=== PATIENT | female | born 1965 | race Caucasian/White ===

== ENCOUNTER 2017-06-23 07:56 | Outpatient (CLI) | payer OTHER, BC ==
[~2017-06-23 07:56] MED LIST: GADOBUTROL 7.5 MMOL/7.5 ML SYRINGE ONE
[2017-06-23] MEDS ORDERED: GADOBUTROL 7.5 MMOL/7.5 ML SYRINGE IVP ONE (08:48)
--- NOTE | 2017-06-23 11:18 | MRI Report ---
EXAM: MRI BRAIN WITHOUT AND WITH CONTRAST EXAM DATE: 06/23/2017 09:08 AM. CLINICAL HISTORY: History of right orbital mass and blurred vision. COMPARISON: None. TECHNIQUE: Multiplanar, multisequence T1-weighted and fluid-sensitive MR sequences of the brain were performed. Sequences optimized for orbit evaluation. Other: None. IV Contrast: 7.5ML GADAVIST. FINDINGS: Brain Volume: Normal for age. Parenchyma: No acute hemorrhage, mass, or infarct. No white matter lesions identified. No abnormal en hancement. Ventricles/Cisterns: No hydrocephalus. No abnormal extra-axial fluid collection or hemorrhage. Orbits: Marked abnormality of the right optic nerve. Beginning at or just behind the right globe ther e is abnormal thickening and enhancement of the right intraorbital optic nerve. This abnormality incl uding enhancement extends posteriorly to just anterior to the level of the optic chiasm. Enlargement of the right optic nerve creates effacement of the normal CSF signal in the optic nerve sheath. The a bnormal right optic nerve shows only minimal T2 hyperintensity, approximately isointense to extraocul ar muscle. Abnormal enhancement appears to be of the optic nerve, but enhancement of optic nerve plata th pathology may be difficult to differentiate from a primary optic nerve lesion. Unremarkable appearance of the left optic nerve. The soft tissues of the orbits are otherwise symmetr ic and unremarkable bilaterally. Symmetric unremarkable appearance of the extraocular muscles and lac rimal glands. No focal ocular lesion or proptosis. Sella Turcica: Partially empty sella. IAC: Symmetric and unremarkable. Vasculature: Normal signal flow void is seen in the major arterial structures at the skull base. The dural sinuses are patent and enhance normally. Sinuses: No acute appearing sinus or mastoid disease. There may be a trace of nonspecific ethmoid and maxillary mucosal thickening. Bones: No focal pathologic appearing marrow signal changes. Other: None. IMPRESSION: 1. 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 This segment of the nerve is mildly enlarged an d shows moderately prominent contrast enhancement extending posteriorly to just anterior to the level of the optic chiasm. This lesion is not strongly T2 hyperintense. Differential includes pseudotumor, optic neuritis, lymphoproliferative lesions, optic nerve glioma, optic nerve sheath meningioma, sarc oidosis, and metastasis. 2. Partially empty sella. 3. Intracranial MRI findings otherwise appear unremarkable. [facility] Referring Provider Line: [phone] SITE ID: [id number]
== END 2017-06-23 07:57 | disposition home or self-care (01) ==
LOC: DI 07:56
PROVIDERS: ATTEND Ophthalmology
DX: D31.61 Benign neoplasm of unspecified site of right orbit (principal); R93.8 Abnormal findings on diagnostic imaging of other specified body structures
CPT/HCPCS: 70543; A9585

== ENCOUNTER 2017-08-11 08:51 | Outpatient (CLI) | payer OTHER, BC ==
[2017-08-11 09:36] LABS: BASOPHILS # (AUTO) 0.1 10^3/uL (0.0-0.1); BASOPHILS % (AUTO) 0.8 %; EOSINOPHILS # (AUTO) 0.4 10^3/uL (0.0-0.7); EOSINOPHILS % (AUTO) 5.3 %; LYMPHOCYTES % (AUTO) 23.1 %; MEAN CORPUSCULAR HEMOGLOBIN 31.3 pg (27.0-31.0); MEAN CORPUSCULAR HGB CONC 34.5 g/dL (32.0-36.0); MEAN CORPUSCULAR VOLUME 90.7 fL (81.0-99.0); MEAN PLATELET VOLUME 8.7 fL (7.9-10.8); MONOCYTES # (AUTO) 0.4 10^3/uL (0.0-1.0); MONOCYTES % (AUTO) 4.6 %; NEUTROPHILS # (AUTO) 5.6 10^3/uL (1.5-6.6); NEUTROPHILS % (AUTO) 66.2 %; PLT - PLATELET COUNT 255 10^3/uL (130-450); RED BLOOD COUNT 4.47 10^6/uL (4.20-5.40); RED CELL DISTRIBUTION WIDTH 13.1 % (12.0-15.0); WHITE BLOOD COUNT 8.5 x10^3/uL (4.8-10.8)
[2017-08-11 09:56] LABS: ALBUMIN/GLOBULIN RATIO 1.1 (1.0-2.2); ALKALINE PHOSPHATASE 79 IU/L (42-121); ALT ALANINE AMINOTRANSFERASE 24 IU/L (10-60); AST ASPARTATE AMINOTRANSFERASE 19 IU/L (10-42); BILIRUBIN,TOTAL 0.4 mg/dL (0.2-1.0); BUN - BLOOD UREA NITROGEN 13 mg/dL (6-20); CALCIUM 9.1 mg/dL (8.5-10.3); CARBON DIOXIDE - CO2 26 mmol/L (21-32); CHLORIDE 104 mmol/L (101-111); CHOL/HDL RATIO 5.6 (<4.4); CHOLESTEROL 158 mg/dL; CREATININE 0.6 mg/dL (0.4-1.0); GFR - MDRD 105 (>89); GLUCOSE 117 mg/dL (70-100); HDL CHOLESTEROL 28 mg/dL; LDL CHOLESTEROL,CALCULATED 65 mg/dL; LDL/HDL RATIO 2.3 (<4.4); SODIUM 138 mmol/L (135-145); TOTAL PROTEIN 7.7 g/dL (6.7-8.2); VLDL CHOLESTEROL 65 mg/dL
[2017-08-13 11:43] LABS: HEPATITIS C ANTIBODY NON-REACTIVE (NON-REACTIVE)
== END 2017-08-11 08:52 | disposition home or self-care (01) ==
LOC: LAB 08:51
PROVIDERS: ATTEND Family Medicine
DX: Z00.00 Encounter for general adult medical examination without abnormal findings (principal); Z82.49 Family history of ischemic heart disease and other diseases of the circulatory system; Z83.3 Family history of diabetes mellitus; Z11.59 Encounter for screening for other viral diseases
CPT/HCPCS: 36415; 80053; 80061; 83721; 84443; 85025; 86803

== ENCOUNTER 2017-08-19 08:30 | Outpatient (CLI) | payer OTHER, BC ==
--- NOTE | 2017-08-20 11:00 | CT Report ---
Procedure Date: 08/19/2017 Accession Number: [id number] / [id number] Procedure: CT - Orbits W/O CPT Code: FULL RESULT: EXAM: CT ORBITS WITHOUT CONTRAST EXAM DATE: 08/19/2017 08:46 AM. CLINICAL HISTORY: Tumor of optic nerve. COMPARISONS: MRI orbits 06/23/2017. TECHNIQUE: Thin-section axial images were acquired of the orbits without contrast. Post-processing: Coronal and sagittal reformats. Other: None. In accordance with CT protocol optimization, one or more of the following dose reduction techniques were utilized for this exam: automated exposure control, adjustment of mA and/or KV based on patient size, or use of iterative reconstructive technique. FINDINGS: As seen on the comparison MRI there is mild enlargement of the right optic nerve throughout its intraocular segment, in the orbital apex, throughout its intracanalicular segment with extension into the most anterior aspect of its prechiasmatic segment. A similar finding is seen on the comparison MRI. The right optic nerve is slightly hyperattenuating relative to the left optic nerve. The left optic nerve is normal in size. No inflammatory change is seen adjacent to either optic nerve. Extraocular muscles are symmetric in size. The lacrimal glands are symmetric in size. Superior ophthalmic vein is not enlarged on the right or on the left. The right and left globes have a normal CT appearance. There is no orbital proptosis. No mass is present in either visualized parotid gland or in the visualized nasopharynx. Mastoid air cells and middle ear cavity are well aerated. No suspicious lytic or blastic region is seen in the wall of either orbit. Trace mucosal thickening is seen in ethmoid air cells and each maxillary sinus. IMPRESSION: 1. Again seen is an enlarged right optic nerve with differential diagnostic considerations discussed on the comparison report. Accounting for differences in modality, this is not felt to be changed [facility]
== END 2017-08-19 08:31 | disposition home or self-care (01) ==
LOC: DI 08:30
PROVIDERS: ATTEND Psychiatry & Neurology Neurology
DX: D49.7 Neoplasm of unspecified behavior of endocrine glands and other parts of nervous system (principal)
CPT/HCPCS: 70480

== ENCOUNTER 2017-08-31 08:00 | Outpatient (CLI) | payer OTHER, BC ==
[2017-08-31] MEDS ORDERED: IOPAMIDOL-300 100 ML VIAL ONE (08:18)
--- NOTE | 2017-08-31 08:54 | CT Report ---
Procedure Date: 08/31/2017 Accession Number: [id number] / [id number] Procedure: CT - Chest W/ CPT Code: FULL RESULT: EXAM: Chest W/ DATE: 08/31/2017 8:29 AM CLINICAL HISTORY: OPTIC NEUROPATHY, RIGHT COMPARISON: None. TECHNIQUE: Routine helical CT imaging was performed through the chest. IV contrast: None. Reconstructions: Coronal and sagittal. In accordance with CT protocol optimization, one or more of the following dose reduction techniques were utilized for this exam: automated exposure control, adjustment of mA and/or KV based on patient size, or use of iterative reconstructive technique. FINDINGS: Lungs/Pleura: No nodules, bronchial thickening, consolidation, or edema. Pulmonary vasculature is normal. No pericardial or pleural effusion. No pneumothorax. Mediastinum: Normal. No adenopathy or masses. The heart and great vessels are normal. Bones: Unremarkable. Visualized Abdomen: Sliding hiatal hernia, small. Other: None. IMPRESSION: No pulmonary masses or suspicious nodules. [facility]
[2017-08-31] MEDS ORDERED: IOPAMIDOL-300 100 ML VIAL IVP ONE (11:59)
== END 2017-08-31 08:01 | disposition home or self-care (01) ==
LOC: DI 08:00
PROVIDERS: ATTEND Psychiatry & Neurology Neurology
DX: H46.9 Unspecified optic neuritis (principal)
CPT/HCPCS: 71260; Q9967

== ENCOUNTER 2018-02-16 08:50 | Outpatient (CLI) | payer BC ==
[2018-02-16 09:24] LABS: BASOPHILS % (AUTO) 0.6 %; EOSINOPHILS # (AUTO) 0.3 10^3/uL (0.0-0.7); EOSINOPHILS % (AUTO) 3.8 %; HGB - HEMOGLOBIN 13.7 g/dL (12.0-16.0); LYMPHOCYTES # (AUTO) 1.6 10^3/uL (1.5-3.5); LYMPHOCYTES % (AUTO) 19.4 %; MEAN CORPUSCULAR HGB CONC 34.7 g/dL (32.0-36.0); MEAN CORPUSCULAR VOLUME 89.5 fL (81.0-99.0); MEAN PLATELET VOLUME 9.1 fL (7.9-10.8); MONOCYTES # (AUTO) 0.4 10^3/uL (0.0-1.0); MONOCYTES % (AUTO) 4.2 %; NEUTROPHILS # (AUTO) 6.1 10^3/uL (1.5-6.6); PLT - PLATELET COUNT 260 10^3/uL (130-450); RED BLOOD COUNT 4.41 10^6/uL (4.20-5.40); RED CELL DISTRIBUTION WIDTH 13.6 % (12.0-15.0); WHITE BLOOD COUNT 8.5 x10^3/uL (4.8-10.8)
[2018-02-16 09:33] LABS: ALBUMIN 4.2 g/dL (3.2-5.5); ALBUMIN/GLOBULIN RATIO 1.4 (1.0-2.2); BILIRUBIN,TOTAL 0.5 mg/dL (0.2-1.0); CALCIUM 9.1 mg/dL (8.5-10.3); CREATININE 0.5 mg/dL (0.4-1.0); TOTAL PROTEIN 7.2 g/dL (6.7-8.2)
== END 2018-02-16 08:51 | disposition home or self-care (01) ==
LOC: LAB 08:50
PROVIDERS: ATTEND Psychiatry & Neurology Neurology
DX: Z79.899 Other long term (current) drug therapy (principal)
CPT/HCPCS: 36415; 80053; 85025

== ENCOUNTER 2018-03-18 08:47 | Outpatient (CLI) | payer BC ==
[2018-03-18 08:58] LABS: BASOPHILS # (AUTO) 0.1 10^3/uL (0.0-0.1); BASOPHILS % (AUTO) 0.7 %; EOSINOPHILS # (AUTO) 0.2 10^3/uL (0.0-0.7); EOSINOPHILS % (AUTO) 2.9 %; HGB - HEMOGLOBIN 13.9 g/dL (12.0-16.0); LYMPHOCYTES # (AUTO) 1.7 10^3/uL (1.5-3.5); LYMPHOCYTES % (AUTO) 19.9 %; MEAN CORPUSCULAR HEMOGLOBIN 30.7 pg (27.0-31.0); MEAN CORPUSCULAR HGB CONC 34.3 g/dL (32.0-36.0); MEAN CORPUSCULAR VOLUME 89.7 fL (81.0-99.0); MEAN PLATELET VOLUME 8.7 fL (7.9-10.8); MONOCYTES # (AUTO) 0.4 10^3/uL (0.0-1.0); MONOCYTES % (AUTO) 4.1 %; NEUTROPHILS # (AUTO) 6.1 10^3/uL (1.5-6.6); NEUTROPHILS % (AUTO) 72.4 %; PLT - PLATELET COUNT 269 10^3/uL (130-450); RED BLOOD COUNT 4.52 10^6/uL (4.20-5.40); RED CELL DISTRIBUTION WIDTH 13.6 % (12.0-15.0); WHITE BLOOD COUNT 8.5 x10^3/uL (4.8-10.8)
[2018-03-18 09:10] LABS: ALBUMIN 4.3 g/dL (3.2-5.5); ALBUMIN/GLOBULIN RATIO 1.3 (1.0-2.2); BILIRUBIN,TOTAL 0.5 mg/dL (0.2-1.0); CALCIUM 9.5 mg/dL (8.5-10.3); CREATININE 0.6 mg/dL (0.4-1.0); TOTAL PROTEIN 7.6 g/dL (6.7-8.2)
== END 2018-03-18 08:48 | disposition home or self-care (01) ==
LOC: LAB 08:47
PROVIDERS: ATTEND Psychiatry & Neurology Neurology
DX: Z79.899 Other long term (current) drug therapy (principal)
CPT/HCPCS: 36415; 80053; 85025

== ENCOUNTER 2018-04-16 09:08 | Outpatient (CLI) | payer BC ==
[2018-04-16 09:54] LABS: BASOPHILS # (AUTO) 0.1 10^3/uL (0.0-0.1); BASOPHILS % (AUTO) 0.7 %; EOSINOPHILS # (AUTO) 0.2 10^3/uL (0.0-0.7); EOSINOPHILS % (AUTO) 2.8 %; HGB - HEMOGLOBIN 13.6 g/dL (12.0-16.0); LYMPHOCYTES # (AUTO) 1.8 10^3/uL (1.5-3.5); LYMPHOCYTES % (AUTO) 22.7 %; MEAN CORPUSCULAR HEMOGLOBIN 30.4 pg (27.0-31.0); MEAN CORPUSCULAR HGB CONC 33.8 g/dL (32.0-36.0); MEAN PLATELET VOLUME 8.9 fL (7.9-10.8); MONOCYTES # (AUTO) 0.3 10^3/uL (0.0-1.0); MONOCYTES % (AUTO) 4.4 %; NEUTROPHILS # (AUTO) 5.4 10^3/uL (1.5-6.6); NEUTROPHILS % (AUTO) 69.4 %; PLT - PLATELET COUNT 256 10^3/uL (130-450); RED BLOOD COUNT 4.46 10^6/uL (4.20-5.40); RED CELL DISTRIBUTION WIDTH 13.7 % (12.0-15.0); WHITE BLOOD COUNT 7.8 x10^3/uL (4.8-10.8)
[2018-04-16 10:11] LABS: ALBUMIN 4.5 g/dL (3.2-5.5); ALBUMIN/GLOBULIN RATIO 1.6 (1.0-2.2); BILIRUBIN,TOTAL 0.6 mg/dL (0.2-1.0); CALCIUM 9.1 mg/dL (8.5-10.3); CREATININE 0.4 mg/dL (0.4-1.0); TOTAL PROTEIN 7.4 g/dL (6.7-8.2)
== END 2018-04-16 09:09 | disposition home or self-care (01) ==
LOC: LAB 09:08
PROVIDERS: ATTEND Psychiatry & Neurology Neurology
DX: Z79.899 Other long term (current) drug therapy (principal)
CPT/HCPCS: 36415; 80053; 85025

== ENCOUNTER 2018-06-23 09:19 | Outpatient (CLI) | payer BC ==
[2018-06-23 09:36] LABS: BASOPHILS # (AUTO) 0.1 10^3/uL (0.0-0.1); BASOPHILS % (AUTO) 0.8 %; EOSINOPHILS # (AUTO) 0.3 10^3/uL (0.0-0.7); EOSINOPHILS % (AUTO) 3.8 %; HGB - HEMOGLOBIN 13.9 g/dL (12.0-16.0); LYMPHOCYTES # (AUTO) 1.6 10^3/uL (1.5-3.5); LYMPHOCYTES % (AUTO) 18.7 %; MEAN CORPUSCULAR HGB CONC 33.8 g/dL (32.0-36.0); MEAN CORPUSCULAR VOLUME 88.7 fL (81.0-99.0); MEAN PLATELET VOLUME 8.4 fL (7.9-10.8); MONOCYTES # (AUTO) 0.3 10^3/uL (0.0-1.0); MONOCYTES % (AUTO) 3.9 %; NEUTROPHILS # (AUTO) 6.3 10^3/uL (1.5-6.6); NEUTROPHILS % (AUTO) 72.8 %; PLT - PLATELET COUNT 268 10^3/uL (130-450); RED BLOOD COUNT 4.63 10^6/uL (4.20-5.40); RED CELL DISTRIBUTION WIDTH 13.3 % (12.0-15.0); WHITE BLOOD COUNT 8.6 x10^3/uL (4.8-10.8)
[2018-06-23 09:51] LABS: ALBUMIN/GLOBULIN RATIO 1.3 (1.0-2.2); BILIRUBIN,TOTAL 0.4 mg/dL (0.2-1.0); CREATININE 0.7 mg/dL (0.4-1.0); TOTAL PROTEIN 7.1 g/dL (6.7-8.2)
== END 2018-06-23 09:20 | disposition home or self-care (01) ==
LOC: LAB 09:19
PROVIDERS: ATTEND Psychiatry & Neurology Neurology
DX: Z79.899 Other long term (current) drug therapy (principal)
CPT/HCPCS: 36415; 80053; 85025

== ENCOUNTER 2018-07-22 08:00 | Outpatient (CLI) | payer BC ==
[2018-07-22 09:52] LABS: BASOPHILS # (AUTO) 0.1 10^3/uL (0.0-0.1); BASOPHILS % (AUTO) 0.9 %; EOSINOPHILS # (AUTO) 0.3 10^3/uL (0.0-0.7); EOSINOPHILS % (AUTO) 3.6 %; HGB - HEMOGLOBIN 13.7 g/dL (12.0-16.0); LYMPHOCYTES # (AUTO) 1.9 10^3/uL (1.5-3.5); LYMPHOCYTES % (AUTO) 21.2 %; MEAN CORPUSCULAR HEMOGLOBIN 30.2 pg (27.0-31.0); MEAN CORPUSCULAR HGB CONC 33.8 g/dL (32.0-36.0); MEAN CORPUSCULAR VOLUME 89.3 fL (81.0-99.0); MONOCYTES # (AUTO) 0.4 10^3/uL (0.0-1.0); MONOCYTES % (AUTO) 4.5 %; NEUTROPHILS # (AUTO) 6.2 10^3/uL (1.5-6.6); NEUTROPHILS % (AUTO) 69.8 %; PLT - PLATELET COUNT 270 10^3/uL (130-450); RED BLOOD COUNT 4.53 10^6/uL (4.20-5.40); RED CELL DISTRIBUTION WIDTH 13.1 % (12.0-15.0); WHITE BLOOD COUNT 8.9 x10^3/uL (4.8-10.8)
[2018-07-22 10:06] LABS: ALBUMIN 4.2 g/dL (3.2-5.5); ALBUMIN/GLOBULIN RATIO 1.3 (1.0-2.2); BILIRUBIN,TOTAL 0.4 mg/dL (0.2-1.0); CREATININE 0.5 mg/dL (0.4-1.0); TOTAL PROTEIN 7.5 g/dL (6.7-8.2)
== END 2018-07-22 23:59 | disposition home or self-care (01) ==
LOC: LAB 08:00
PROVIDERS: ATTEND Psychiatry & Neurology Neurology
DX: Z79.899 Other long term (current) drug therapy (principal)
CPT/HCPCS: 36415; 80053; 85025

== ENCOUNTER 2018-08-20 08:50 | Outpatient (CLI) | payer BC ==
[2018-08-20 09:16] LABS: BASOPHILS % (AUTO) 0.5 %; EOSINOPHILS # (AUTO) 0.3 10^3/uL (0.0-0.7); EOSINOPHILS % (AUTO) 3.5 %; HGB - HEMOGLOBIN 13.3 g/dL (12.0-16.0); LYMPHOCYTES # (AUTO) 1.6 10^3/uL (1.5-3.5); LYMPHOCYTES % (AUTO) 21.2 %; MEAN CORPUSCULAR HGB CONC 33.8 g/dL (32.0-36.0); MEAN CORPUSCULAR VOLUME 91.6 fL (81.0-99.0); MEAN PLATELET VOLUME 10.3 fL (7.9-10.8); MONOCYTES # (AUTO) 0.4 10^3/uL (0.0-1.0); MONOCYTES % (AUTO) 5.4 %; NEUTROPHILS # (AUTO) 5.1 10^3/uL (1.5-6.6); NEUTROPHILS % (AUTO) 68.7 %; PLT - PLATELET COUNT 259 10^3/uL (130-450); RED BLOOD COUNT 4.29 10^6/uL (4.20-5.40); RED CELL DISTRIBUTION WIDTH 12.9 % (12.0-15.0); WHITE BLOOD COUNT 7.4 x10^3/uL (4.8-10.8)
[2018-08-20 09:31] LABS: ALBUMIN 4.2 g/dL (3.2-5.5); ALBUMIN/GLOBULIN RATIO 1.2 (1.0-2.2); BILIRUBIN,TOTAL 0.4 mg/dL (0.2-1.0); CALCIUM 9.2 mg/dL (8.5-10.3); CREATININE 0.6 mg/dL (0.4-1.0); TOTAL PROTEIN 7.6 g/dL (6.7-8.2)
== END 2018-08-20 08:51 | disposition home or self-care (01) ==
LOC: LAB 08:50
PROVIDERS: ATTEND Psychiatry & Neurology Neurology
DX: Z79.899 Other long term (current) drug therapy (principal)
CPT/HCPCS: 36415; 80053; 85025

== ENCOUNTER 2019-12-20 09:46 | Outpatient (CLI) | payer BC ==
[2019-12-20 09:54] LABS: BASOPHILS % (AUTO) 0.5 %; EOSINOPHILS # (AUTO) 0.3 10^3/uL (0.0-0.7); HGB - HEMOGLOBIN 13.9 g/dL (12.0-16.0); LYMPHOCYTES # (AUTO) 1.9 10^3/uL (1.5-3.5); LYMPHOCYTES % (AUTO) 21.1 %; MEAN CORPUSCULAR HGB CONC 33.2 g/dL (32.0-36.0); MEAN CORPUSCULAR VOLUME 93.3 fL (81.0-99.0); MEAN PLATELET VOLUME 10.4 fL (7.9-10.8); MONOCYTES # (AUTO) 0.4 10^3/uL (0.0-1.0); MONOCYTES % (AUTO) 4.2 %; NEUTROPHILS # (AUTO) 6.3 10^3/uL (1.5-6.6); NEUTROPHILS % (AUTO) 70.9 %; PLT - PLATELET COUNT 273 10^3/uL (130-450); RED BLOOD COUNT 4.49 10^6/uL (4.20-5.40); RED CELL DISTRIBUTION WIDTH 12.6 % (12.0-15.0); WHITE BLOOD COUNT 8.9 x10^3/uL (4.8-10.8)
[2019-12-20 10:08] LABS: ALBUMIN 4.3 g/dL (3.2-5.5); ALBUMIN/GLOBULIN RATIO 1.4 (1.0-2.2); BILIRUBIN,TOTAL 0.6 mg/dL (0.2-1.0); CALCIUM 8.9 mg/dL (8.5-10.3); CREATININE 0.6 mg/dL (0.4-1.0); TOTAL PROTEIN 7.4 g/dL (6.7-8.2)
== END 2019-12-20 09:47 | disposition home or self-care (01) ==
LOC: LAB 09:46
PROVIDERS: ATTEND Psychiatry & Neurology Neurology
DX: Z79.899 Other long term (current) drug therapy (principal)
CPT/HCPCS: 36415; 80053; 85025

== ENCOUNTER 2020-07-24 09:21 | Outpatient (CLI) | payer BC ==
[2020-07-24 10:06] LABS: HCT - HEMATOCRIT 39.8 % (37.0-47.0); HGB - HEMOGLOBIN 13.6 g/dL (12.0-16.0); MEAN CORPUSCULAR HEMOGLOBIN 31.6 pg (27.0-31.0); MEAN CORPUSCULAR HGB CONC 34.2 g/dL (32.0-36.0); MEAN CORPUSCULAR VOLUME 92.6 fL (81.0-99.0); MEAN PLATELET VOLUME 10.4 fL (7.9-10.8); RED BLOOD COUNT 4.3 10^6/uL (4.20-5.40); RED CELL DISTRIBUTION WIDTH 12.7 % (12.0-15.0)
== END 2020-07-24 09:22 | disposition home or self-care (01) ==
LOC: LAB 09:21
PROVIDERS: ATTEND Psychiatry & Neurology Neurology
DX: Z79.899 Other long term (current) drug therapy (principal)
CPT/HCPCS: 36415; 80053; 85027

== ENCOUNTER 2020-07-26 09:51 | Outpatient (CLI) | payer BC ==
[2020-07-26 10:17] LABS: ALBUMIN 4.5 g/dL (3.2-5.5); ALBUMIN/GLOBULIN RATIO 1.5 (1.0-2.2); BILIRUBIN,TOTAL 0.6 mg/dL (0.2-1.0); CALCIUM 9.1 mg/dL (8.5-10.3); CREATININE 0.6 mg/dL (0.4-1.0); POTASSIUM 4.1 mmol/L (3.5-5.0); TOTAL PROTEIN 7.6 g/dL (6.7-8.2)
== END 2020-07-26 09:52 | disposition home or self-care (01) ==
LOC: LAB 09:51
PROVIDERS: ATTEND Psychiatry & Neurology Neurology
DX: Z79.899 Other long term (current) drug therapy (principal)
CPT/HCPCS: 36415; 80053

== ENCOUNTER 2020-10-31 08:20 | Outpatient (CLI) | payer BC ==
--- NOTE | 2020-11-01 08:53 | Mammography Report ---
BILATERAL DIGITAL SCREENING MAMMOGRAM 3D/2D: 10/31/2020 CLINICAL: Routine screening. Comparison is made to exams dated: 02/14/2011 mammogram, 12/03/2007 mammogram, and 07/29/2004 mammogram - [facility]. The tissue of both breasts is heterogeneously dense. This may lower the sensitiv ity of mammography. There is a new oval low density asymmetry with a circumscribed and microlobulated margin and fine ministerio cifications in the right breast at 12 o'clock anterior depth. No other significant masses, calcifications, or other findings are seen in either breast. IMPRESSION: INCOMPLETE: NEEDS ADDITIONAL IMAGING EVALUATION The new oval low density asymmetry in the right breast is indeterminate. Additional views with possi ble ultrasound are recommended. This exam was interpreted at Station ID: [id number]. NOTE: For mammograms, a report in lay terms will be sent to the patient. Approximately 15% of breast malignancies will not be visualized mammographically. In the management of a palpable breast mass, a negative mammogram must not discourage biopsy of a clinically suspicious lesion. Electronically Signed By: Cindy lockwood/:10/31/2020 11:45:38 ACR BI-RADS Category 0: Incomplete 3340F PARENCHYMAL PATTERN: (D) - The breast(s) demonstrate(s) heterogeneously dense fibroglandular kimberly zarco. BI-RADS CATEGORY: (0) - 0 Mammo and [place] [id number] Immediate follow-up LATERALITY: (B)
== END 2020-10-31 08:21 | disposition home or self-care (01) ==
LOC: DI 08:20
DX: Z12.31 Encounter for screening mammogram for malignant neoplasm of breast (principal); R92.8 Other abnormal and inconclusive findings on diagnostic imaging of breast

== ENCOUNTER 2020-11-30 12:18 | Outpatient (CLI) | payer BC ==
--- NOTE | 2020-12-03 10:16 | Mammography Report ---
UNILATERAL RIGHT DIGITAL DIAGNOSTIC MAMMOGRAM 3D/2D: 11/30/2020 CLINICAL: Patient returns today to evaluate a focal asymmetry in the right breast. Comparison is made to exams dated: 10/31/2020 mammogram - [facility], 12/03/2007 ma mmogram, and 02/14/2011 mammogram - [facility]. The tissue of right breast is heterogeneously den se. This may lower the sensitivity of mammography. There is a new oval low density asymmetry with a circumscribed and microlobulated margin and fine ministerio cifications in the right breast at 12 o'clock anterior depth. There also is a possible 0.5 cm oval focal asymmetry with a microlobulated margin in the right breast at 3 o'clock anterior depth. Finding is seen only on tomography. No other significant masses or calcifications are seen in the breast. IMPRESSION: INCOMPLETE: NEEDS ADDITIONAL IMAGING EVALUATION The new oval low density asymmetry in the right breast at 12 o'clock anterior depth is indeterminate. -A targeted ultrasound is recommended and will immediately follow. The possible 0.5 cm oval focal asymmetry in the right breast at 3 o'clock anterior depth is indetermi robert. -A targeted ultrasound is recommended and will immediately follow. This exam was interpreted at Station ID: [id number]. NOTE: For mammograms, a report in lay terms will be sent to the patient. Approximately 15% of breast malignancies will not be visualized mammographically. In the management of a palpable breast mass, a negative mammogram must not discourage biopsy of a clinically suspicious lesion. Electronically Signed By: Wilner Han M.D. slc/:11/30/2020 13:00:17 ACR BI-RADS Category 0: Incomplete 3340F PARENCHYMAL PATTERN: (D) - The breast(s) demonstrate(s) heterogeneously dense fibroglandular parenchy ma. BI-RADS CATEGORY: (0) - 0 Ultrasound [id number] Immediate follow-up LATERALITY: (B)
--- NOTE | 2020-12-03 10:16 | Ultrasound Report ---
LIMITED ULTRASOUND OF RIGHT BREAST AND AXILLA: 11/30/2020 CLINICAL: Patient returns today to evaluate a focal asymmetries in the right breast. Comparison is made to exams dated: 11/30/2020 mammogram, 10/31/2020 mammogram - [facility], and 02/14/2011 mammogram - [facility]. Color flow and real-time ultrasound of the right breast 2-3 o'clock, 12 o'clock, retroareolar, and ax illa regions were performed. Hare scale images of the real-time examination were reviewed. There is a 1.1 cm x 0.9 cm x 0.6 cm oval mass in the right breast at 12 o'clock anterior depth 1 cm f rom the nipple. This oval mass is hypoechoic with a well-defined boundary. This correlates with francis mography findings. Color flow imaging demonstrates that there is no vascularity present. Additionally, there is a 0.9 cm x 0.6 cm x 0.4 cm irregular mass in the right breast at 2 o'clock ant erior depth 3 cm from the nipple. This irregular mass is hypoechoic. Color flow imaging demonstrate s that there is vascularity present. There also is a 0.8 cm x 0.7 cm x 0.3 cm wider than tall oval mass with an indistinct margin in the r ight breast at 3 o'clock middle depth 3 cm from the nipple. This oval mass is hypoechoic. This michel elates with mammography findings. Color flow imaging demonstrates that there is no vascularity prese nt. This is located 0.9 cm from the mass at 2:00. No significant abnormalities were seen sonographically in the right axilla. IMPRESSION: SUSPICIOUS OF MALIGNANCY 1) The 1.1 cm x 0.9 cm x 0.6 cm oval mass in the right breast at 12 o'clock anterior depth resembles a fibroadenoma and is at a low suspicion for malignancy. -An ultrasound guided biopsy is recommended. 2) The 0.9 cm x 0.6 cm x 0.4 cm irregular mass in the right breast at 2 o'clock anterior depth is at a low suspicion for malignancy. -An ultrasound guided biopsy is recommended. 3) The 0.8 cm x 0.7 cm x 0.3 cm wider than tall oval mass in the right breast at 3 o'clock middle dep th resembles a fibroadenoma and is at a low suspicion for malignancy. Will biopsy the mass at 2:00 (w hich is slightly more suspicious) given the close proximity of these two masses. Exam findings were discussed with the patient by Dr. Velarde. This exam was interpreted at Station ID: [id number]. Electronically Signed By: Wilner Han M.D. slc/:11/30/2020 14:00:40 Ultrasound BI-RADS: 4a Low suspicion for malignancy BI-RADS CATEGORY: (4a) - Low Susp None [id number] Immediate follow-up LATERALITY: ()
== END 2020-11-30 12:19 | disposition home or self-care (01) ==
LOC: DI 12:18
PROVIDERS: ATTEND Obstetrics & Gynecology
DX: R92.8 Other abnormal and inconclusive findings on diagnostic imaging of breast (principal)

== ENCOUNTER 2020-12-06 08:41 | Outpatient (CLI) | payer BC ==
[~2020-12-06 08:41] MED LIST changes: +BUFFERED LIDOCAINE 10 ML SYRINGE ONE; -GADOBUTROL 7.5 MMOL/7.5 ML SYRINGE ONE
[2020-12-06] MEDS ORDERED: BUFFERED LIDOCAINE 10 ML SYRINGE IU ONE (11:12)
[2020-12-06] MEDS ORDERED: LIDOCAINE 1%-EPI 1:100000 20 ML MDV SUBQ ONE (11:30)
--- NOTE | 2020-12-07 09:12 | Mammography Report ---
UNILATERAL RIGHT DIGITAL DIAGNOSTIC MAMMOGRAM 3D/2D: 12/06/2020 CLINICAL: Post right breast ultrasound biopsy clip placement imaging. Comparison is made to exams dated: 11/30/2020 ultrasound, 11/30/2020 mammogram, 10/31/2020 mammogram - [facility], 02/14/2011 mammogram, 12/03/2007 mammogram, and 07/29/2004 mammogram - [facility]. The tissue of right breast is heterogeneously dense. This may lower the sensitivity of mammography. There is a marker clip in the appropriate position in the right breast at 12 o'clock This marker clip placement is at the biopsy site. There also is a marker clip in the appropriate position in the right breast at 2 o'clock This marker clip placement is at the biopsy site. IMPRESSION: POST PROCEDURE MAMMOGRAM FOR MARKER PLACEMENT There was a successful marker clip placement in the right breast at 12 o'clock There was a successful marker clip placement in the right breast at 2 o'clock This exam was interpreted at Station ID: [id number]. NOTE: For mammograms, a report in lay terms will be sent to the patient. Approximately 15% of breast malignancies will not be visualized mammographically. In the management of a palpable breast mass, a negative mammogram must not discourage biopsy of a clinically suspicious lesion. Electronically Signed By: Onur solano/:12/06/2020 13:36:09 ACR BI-RADS Category Post-procedure mammogram for marker placement PARENCHYMAL PATTERN: (D) - The breast(s) demonstrate(s) heterogeneously dense fibroglandular kimberly zarco. BI-RADS CATEGORY: () - Biopsy follow-up [id number] Immediate follow-up LATERALITY: (B)
--- NOTE | 2020-12-11 13:21 | Ultrasound Report ---
ULTRASOUND GUIDED BIOPSY RIGHT BREAST USING VACUUM DEVICE WITH MARKING DEVICE INSERTED: 12/06/2020 CLINICAL: Right breast mass. PATIENT CONSENT: Risks (minor bleeding, infection, vasovagal reaction and repeat procedure), benefits and alternatives were explained to the patient and written informed consent was obtained. Correlation is made to exams dated: 12/06/2020 ultrasound biopsy, 12/06/2020 mammogram, 11/30/2020 u ltrasound, 11/30/2020 mammogram, 10/31/2020 mammogram - [facility], and 02/14/2011 [facility]. An ultrasound guided biopsy using real-time ultrasound was performed for the mass located in the righ t breast at 2 o'clock posterior depth. The skin was prepped in the usual manner. Local anesthetic w as administered to the access site. A small incision was made in the breast. The abnormality was ap proached from the lateral aspect. A biopsy needle was placed adjacent to the abnormality under ultra sound guidance. Once the needle was documented to be in the correct location, multiple specimens wer e obtained using the Mammotome biopsy system. The patient received additional local anesthetic durin g the procedure. A clip was inserted into the biopsy cavity. The specimens were sent to the [facility] for pathological analysis. IMPRESSION: ULTRASOUND GUIDED BIOPSY BENIGN Ultrasound guided biopsy of the mass in the right breast at 2 o'clock posterior depth was successful. Pathology indicates benign fibrocystic changes (FC). Pathology results are concordant with imaging findings. A follow-up right ultrasound in 6 months is recommended to demonstrate stability of the 2:00 abnormal ity. This exam was interpreted at Station ID: [id number]. Onur solano,fabián/:12/11/2020 12:26:14 BI-RADS CATEGORY: () - Ultrasound [id number] 6 month follow-up LATERALITY: (R)
--- NOTE | 2020-12-11 13:21 | Ultrasound Report ---
ULTRASOUND GUIDED BIOPSY RIGHT BREAST USING VACUUM DEVICE WITH MARKING DEVICE INSERTED: 12/06/2020 CLINICAL: Right breast mass. PATIENT CONSENT: Risks (minor bleeding, infection, vasovagal reaction and repeat procedure), benefits and alternatives were explained to the patient and written informed consent was obtained. Correlation is made to exams dated: 12/06/2020 mammogram, 11/30/2020 ultrasound, 11/30/2020 mammogra m, 10/31/2020 mammogram - [facility], 02/14/2011 mammogram, and 12/03/2007 mammogram - [facility]. An ultrasound guided biopsy using real-time ultrasound was performed for the mass located in the righ t breast at 12 o'clock posterior depth. The skin was prepped in the usual manner. Local anesthetic was administered to the access site. A small incision was made in the breast. The abnormality was a pproached from the lateral aspect. A biopsy needle was placed adjacent to the abnormality under ultr asound guidance. Once the needle was documented to be in the correct location, multiple specimens we re obtained using the Mammotome biopsy system. The patient received additional local anesthetic duri ng the procedure. A clip was inserted into the biopsy cavity. [facility]. IMPRESSION: ULTRASOUND GUIDED BIOPSY BENIGN Ultrasound guided biopsy of the mass in the right breast at 12 o'clock posterior depth was successful . 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 Pathology results are co ncordant with imaging findings. This exam was interpreted at Station ID: [id number]. Onur solano,fabián/:12/11/2020 12:24:16 BI-RADS CATEGORY: () - Unspecified - other recall n/a LATERALITY: (B)
== END 2020-12-06 08:42 | disposition home or self-care (01) ==
LOC: DI 08:41
PROVIDERS: ATTEND Obstetrics & Gynecology
DX: R92.8 Other abnormal and inconclusive findings on diagnostic imaging of breast (principal); D24.1 Benign neoplasm of right breast; N60.11 Diffuse cystic mastopathy of right breast
CPT/HCPCS: 19083; 19084

== ENCOUNTER 2022-11-28 08:05 | Outpatient (CLI) | payer BC, OTHER ==
--- NOTE | 2022-11-28 11:23 | Mammography Report ---
BILATERAL DIGITAL DIAGNOSTIC MAMMOGRAM 3D/2D WITH EXAGGERATED CC: 11/28/2022 CLINICAL: Diffuse right breast pain. Due for bilateral imaging. Comparison is made to exams dated: 12/06/2020 mammogram, 11/30/2020 mammogram, 10/31/2020 mammogram, 12/06/2020 ultrasound biopsy, and 12/06/2020 ultrasound biopsy - [facility]. Both breasts are heterogeneously dense, which may obscure small masses (category c / 51-75% glandular tissue). Biopsy site markers in the right breast x2. No significant masses, calcifications, or other findings are seen in either breast. IMPRESSION: BENIGN There is no mammographic evidence of malignancy. Diffuse right breast pain. No significant change. No mass or significant cyst identified. A 1 year screening mammogram is recommended. Exam findings were conveyed to the patient. Patient is advised to monitor for significant change. Cli nical follow-up as needed. Based on the Tyrer Cuzick model (a risk assessment model) the patients lifetime risk is 11.4% and he r 10 year risk is 4.2%. According to the ACR, ACS, and NCCN guidelines, an annual breast MRI exam jaleel ng with mammogram is recommended if the patients lifetime risk is 20% or greater. This exam was interpreted at Station ID: [id number]. NOTE: For mammograms, a report in lay terms will be sent to the patient. Approximately 15% of breast malignancies will not be visualized mammographically. In the management of a palpable breast mass, a negative mammogram must not discourage biopsy of a clinically suspicious lesion. Electronically Signed By: Wilner Han M.D. slc/:11/28/2022 08:56:16 ACR BI-RADS Category 2: Benign Finding(s) 3342F PARENCHYMAL PATTERN: (D) - The breast(s) demonstrate(s) heterogeneously dense fibroglandular kimberly zarco. BI-RADS CATEGORY: (2) - 2 Mammogram [id number] 1 year screening LATERALITY: (B)
== END 2022-11-28 08:06 | disposition home or self-care (01) ==
LOC: DI 08:05
PROVIDERS: ATTEND Internal Medicine
DX: N64.4 Mastodynia (principal); R92.333 Mammographic heterogeneous density, bilateral breasts